=== PATIENT | female | born 1975 | race Caucasian/White ===

== ENCOUNTER 2019-03-08 20:08 | Emergency (ER) | payer OTHER ==
[~2019-03-08] VITALS: Ht 152.4 cm; Wt 88.9 kg
[2019-03-08 20:12] VITALS: Ht 152.4 cm; Wt 88.9 kg
[2019-03-08 20:49] LABS: BASOPHIL % 0.4 % (0-2); PLATELET COUNT 391 x10^3mcL (130-400)
[2019-03-08 20:52] LABS: RED CELL DISTRIBUTION WIDTH 15.5 % (11.5-14.5)
[2019-03-08 20:58] LABS: CALCIUM 8.5 mg/dL (8.5-10.1); CARBON DIOXIDE 26.2 mmol/L (21-32); CHLORIDE SERUM 105 mmol/L (98-107); CREATININE SERUM 0.8 mg/dL (0.6-1.0); GFR1 > 60 mL/min; GLUCOSE SERUM 116 mg/dL (74-106); POTASSIUM SERUM 3.8 mmol/L (3.5-5.1); SODIUM SERUM 140 mmol/L (136-145)
[2019-03-08 21:02] LABS: ALKALINE PHOSPHATASE 70 U/L (46-116); ALT/SGPT 44 U/L (14-59); AST/SGOT 28 U/L (15-37); BILIRUBIN TOTAL 0.2 mg/dL (0.20-1.00); TOTAL PROTEIN, SERUM 7.2 g/dL (6.4-8.2)
[2019-03-08 23:39] VITALS: BP 145/94
== END 2019-03-08 23:39 | disposition home or self-care (01) ==
LOC: ED 20:08
PROVIDERS: Emergency Medicine
DX: I10 Essential (primary) hypertension (principal); R00.2 Palpitations
CPT/HCPCS: 83880; J1885; J3490; Q0092

== ENCOUNTER 2020-08-29 04:20 | Emergency (ER) | payer OTHER ==
[~2020-08-29] VITALS: Ht 152.4 cm; Wt 88.5 kg
[2020-08-29 04:56] VITALS: Ht 152.4 cm; Wt 88.5 kg
[2020-08-29 07:54] LABS: ALKALINE PHOSPHATASE 57 U/L (46-116); ALT/SGPT 24 U/L (14-59); AST/SGOT 41 U/L (15-37); BILIRUBIN TOTAL 0.3 mg/dL (0.20-1.00); CALCIUM 8.6 mg/dL (8.5-10.1); CARBON DIOXIDE 25.9 mmol/L (21-32); CHLORIDE SERUM 101 mmol/L (98-107); CREATININE SERUM 0.6 mg/dL (0.6-1.0); GFR1 > 60 mL/min; GLUCOSE SERUM 93 mg/dL (74-106); SODIUM SERUM 135 mmol/L (136-145); TOTAL PROTEIN, SERUM 6.9 g/dL (6.4-8.2)
[2020-08-29 07:55] LABS: UA SPECIFIC GRAVITY 1.025 (1.005-1.035); microscopic required? YES; urine erythrocyte 3+ (NEGATIVE)
[2020-08-29 07:55] LABS: ALBUMIN 2.9 g/dL (3.4-5.0); POTASSIUM SERUM 2.9 mmol/L (3.5-5.1)
[2020-08-29 08:11] LABS: BASOPHIL % 0.7 % (0-2); PLATELET COUNT 280 x10^3mcL (130-400); RED CELL DISTRIBUTION WIDTH 17.1 % (11.5-14.5)
[2020-08-29 09:07] VITALS: BP 188/104
== END 2020-08-29 09:07 | disposition home or self-care (01) ==
LOC: ED 04:20
PROVIDERS: Student in an Organized Health Care Education/Training Program
DX: E87.6 Hypokalemia (principal); N39.0 Urinary tract infection, site not specified; N20.0 Calculus of kidney; I10 Essential (primary) hypertension

== ENCOUNTER 2020-10-10 12:33 | Emergency (ER) | payer OTHER | END 2020-10-10 14:19 | disposition left against medical advice (07) | LOC: ED 12:33 | DX: Z53.21 Procedure and treatment not carried out due to patient leaving prior to being seen by health care provider (principal) ==